=== PATIENT | female | born 1950 | race Caucasian/White ===

== ENCOUNTER 2018-06-17 14:51 | Outpatient (CLI) | payer MEDICARE, BC ==
--- NOTE | 2018-06-17 17:10 | XRAY Report ---
Reason: INJURY LT FOOT Procedure Date: 06/17/2018 Accession Number: [id number] / [id number] Procedure: XR - Foot 3 View LT CPT Code: FULL RESULT: EXAM: LEFT FOOT RADIOGRAPHY EXAM DATE: 06/17/2018 02:59 PM. CLINICAL HISTORY: INJURY LT FOOT with pain. COMPARISON: 12/26/15 left foot x-ray, 03/28/16 left foot MRI. TECHNIQUE: 3 views. FINDINGS: Bones: No fractures or bone lesions. Joints: Moderately advanced first metatarsophalangeal and first metatarsal sesamoid degenerative change. Degenerative change the second metatarsal tarsal articulation. Soft Tissues: Mild soft tissue swelling medial first metatarsal head and lateral fifth metatarsal head IMPRESSION: Degenerative change left foot radiography similar to 12/26/15. RADIA
== END 2018-06-17 14:52 | disposition home or self-care (01) ==
LOC: DI 14:51
PROVIDERS: ATTEND Podiatrist
DX: S99.922A Unspecified injury of left foot, initial encounter (principal); M19.072 Primary osteoarthritis, left ankle and foot

== ENCOUNTER 2018-11-04 03:17 | Emergency (ER) | payer MEDICARE, BC ==
--- NOTE | 2018-11-04 03:57 | ED Physician Documentation ---
PD HPI HEENT - Stated complaint Stated Complaint: BLEEDING EAR - Chief complaint Chief Complaint: Heent - History obtained from History obtained from: Patient - History of Present Illness Timing - onset: How many hours ago (approximately 1 hour DERRICK HAND) Timing - details: Abrupt onset Location: Right ear Improves: Nothing Worsens: No: Swalllowing, Noise, Position, Temperatures, Everything Associated symptoms: No: Fever, Congestion, Rhinorrhea, Trismus, Unable to swallow, Swollen nodes, Facial swelling, Headache, Cough Similar symptoms before: Has not had sx before Recently seen: Not recently seen - Additional information Additional information: woke from sleep with painless bleeding from right ear. denies trauma, denies h/o similar problem Review of Systems Constitutional: reports: Reviewed and negative Ears: reports: Drainage/discharge (blood). 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 - Present Medications Home Medications: Ambulatory Orders Medication Instructions Recorded Confirmed Atorvastatin [Lipitor] 2 mg ORAL DAILY 08/11/14 11/04/18 Bupropion HCl [Wellbutrin] 1 mg ORAL DAILY 08/11/14 11/04/18 Citalopram [CeleXA] 40 mg PO DAILY 08/11/14 11/04/18 Lamotrigine [Lamotrigine ER] 1 mg ORAL DAILY 08/11/14 11/04/18 - Allergies Allergies/Adverse Reactions: Allergies Allergy/AdvReac Type Severity Reaction Status Date / Time No Known Drug Allergies Allergy Verified 11/04/18 03:23 - Social History Does the pt smoke?: No Smoking Status: Never smoker Does the pt drink ETOH?: Yes Does the pt have substance abuse?: No - Immunizations Immunizations are current?: Yes PD ED PE NORMAL - Vitals Vital signs reviewed: Yes - General General: Alert and oriented X 3, No acute distress, Well developed/nourished - HEENT HEENT: Moist mucous membranes PD ED PE EXPANDED - HEENT HEENT: Other (there is blood in right external auditory canal but no active bleeding seen including after blood and debris removed with plastic curette. no swelling and normal right TM.) Results - Vitals Vitals: Oxygen O2 Source Room air PD MEDICAL DECISION MAKING - ED course Complexity details: considered differential, d/w patient Departure - Departure Disposition: 01 Home, Self Care Clinical Impression: Otitis externa Condition: Good Instructions: ED Otitis Externa Comments: Use the antibiotic drops as follows: 4 drops in right ear three times per day for 1 week. Follow-up with ENT as scheduled. Discharge Date/Time: 11/04/18 04:34
[2018-11-04] MEDS ORDERED: NEOMYCIN/POLYMYX/HC OTIC DROPS RIGHTEAR STA (04:23)
[2018-11-04 04:31] VITALS: BP 122/64
== END 2018-11-04 04:34 | disposition home or self-care (01) ==
LOC: ED 03:17
DX: H60.91 Unspecified otitis externa, right ear (principal)
CPT/HCPCS: 99282; 99283; A9270

== ENCOUNTER 2019-05-02 07:45 | Outpatient (CLI) | payer MEDICARE, BC ==
[2019-05-02] MEDS ORDERED: GADOBUTROL 10 MMOL/10 ML VIAL ONE (07:55)
[2019-05-02] MEDS ORDERED: GADOBUTROL 10 MMOL/10 ML VIAL IVP ONE (08:41)
--- NOTE | 2019-05-02 09:23 | MRI Report ---
Reason: VERTIGO, DIZZINESS, HEADACHE Procedure Date: 05/02/2019 Accession Number: [id number] / [id number] Procedure: MRI - IACS W/WO CPT Code: FULL RESULT: EXAM: MRI BRAIN AND IACS WITHOUT AND WITH CONTRAST EXAM DATE: 05/02/2019 08:52 AM. CLINICAL HISTORY: 6-year-old woman with vertigo, dizziness, and headache. COMPARISON: BRAIN 01/03/2007 2:59 PM. TECHNIQUE: Multiplanar, multisequence T1-weighted and fluid-sensitive MR sequences of the brain were performed. Sequences optimized for routine evaluation. Other: High resolution axial images were acquired through the internal auditory canals. IV Contrast: 7 cc Gadavist. FINDINGS: Parenchyma: No evidence of acute infarct on diffusion-weighted sequence. The parenchyma demonstrates several small scattered foci of nonspecific FLAIR hyperintensity in the deep cerebral white matter, progressed compared to 2006 MRI but still less than commonly seen in this age group. No evidence of prior hemorrhage on susceptibility weighted sequence. No abnormal enhancement. Pituitary: Unremarkable. Ventricles and Extra-axial Spaces: Ventricles are symmetric and normal in size for age. Extra-axial spaces are unremarkable. No abnormal enhancement. Internal Auditory Canals: Patent without mass lesion or abnormal enhancement bilaterally. Cochleas and vestibular apparatuses demonstrate normal fluid signal intensity without abnormal enhancement. No evidence of semicircular canal dehiscence. Orbits: Unremarkable. Sinuses: Paranasal sinuses and mastoid air cells are clear. Major Vascular Flow Voids: Intact. Dural Venous Sinuses and Major Central Veins: Patent on post-contrast images. Other: Cystic lesion is present in the left infratemporal soft tissues just anterior to the external auditory canal that measures 10 x 8 mm, not significantly changed compared to the 2006 exam. IMPRESSION: 1. Normal MRI of the internal auditory canals. No abnormal enhancement or mass lesion. 2. Mild white matter changes, progressed compared to the 01/03/2007 exam but less than commonly seen in this age group. 3. Small cystic lesion in the left anterior periauricular soft tissues, unchanged from the 2006 exam. Stability favors benignity. Differential diagnosis includes cystic skin lesion or possibly cyst arising from the temporomandibular joint. RADIA
== END 2019-05-02 07:46 | disposition home or self-care (01) ==
LOC: DI 07:45
PROVIDERS: ATTEND Otolaryngology Facial Plastic Surgery
DX: H81.11 Benign paroxysmal vertigo, right ear (principal); H93.293 Other abnormal auditory perceptions, bilateral; R42 Dizziness and giddiness; R51 Headache
CPT/HCPCS: 70543; A9585

== ENCOUNTER 2019-06-28 16:03 | Emergency (ER) | payer MEDICARE, BC ==
[2019-06-28 16:15] VITALS: BP 140/75
[2019-06-28 16:28] LABS: BILIRUBIN,URINE NEGATIVE (NEGATIVE); GLUCOSE, URINE (UA) NEGATIVE (NEGATIVE); KETONES,URINE (UA) NEGATIVE (NEGATIVE); LEUKOCYTE ESTERASE, URINE MODERATE (NEGATIVE); NITRITE,URINE NEGATIVE (NEGATIVE); OCCULT BLOOD,URINE LARGE (NEGATIVE); PH,URINE 5.5 PH (5.0-7.5); PROTEIN,URINE 100 mg/dL (NEGATIVE); UROBILINOGEN,URINE 0.2 (NORMAL) E.U./dL (NORMAL)
[2019-06-28 16:31] LABS: BACTERIA,URINE Many /HPF (None Seen); CLARITY,URINE CLOUDY (CLEAR); RBC,URINE TNTC /HPF (0-5); SQUAMOUS EPITHELIAL CELL,UR RARE Squamous (<= Few)
--- NOTE | 2019-06-28 16:49 | ED Physician Documentation ---
History of Present Illness - Stated complaint Stated Complaint: FEM - Chief complaint Chief Complaint: UTI - Additonal information Additional information: This is a 69-year-old female with a history of a hysterectomy as well as recurrent UTIs, who presents with urgency and dysuria. Patient states that she was evaluated by a urologist in the past to look for structural causes of her UTI, nothing was found. She has had some recurrent UTIs for years, most recently she began having some symptoms 2 weeks ago. She was put on a 5-day course of Macrobid which did not help, she saw a second physician who put her on a 10-day course of Macrobid, this also has not resolved her symptoms. She denies any abdominal pain, vomiting, or fever. Other than the dysuria and urgency she feels well. 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 - Present Medications Home Medications: Ambulatory Orders Medication Instructions Recorded Confirmed Atorvastatin [Lipitor] 2 mg ORAL DAILY 08/11/14 11/04/18 Bupropion HCl [Wellbutrin] 1 mg ORAL DAILY 08/11/14 11/04/18 Citalopram [CeleXA] 40 mg PO DAILY 08/11/14 11/04/18 Lamotrigine [Lamotrigine ER] 1 mg ORAL DAILY 08/11/14 11/04/18 Cefdinir 300 mg PO BID #14 capsule 06/28/19 Phenazopyridine HCl [Pyridium] 200 mg PO TID PRN #6 tablet 06/28/19 - Allergies Allergies/Adverse Reactions: Allergies Allergy/AdvReac Type Severity Reaction Status Date / Time No Known Drug Allergies Allergy Verified 11/04/18 03:23 - Social History Does the pt smoke?: No Smoking Status: Never smoker Does the pt drink ETOH?: Yes Does the pt have substance abuse?: No - Immunizations Immunizations are current?: Yes PD ED PE NORMAL - Vitals Vital signs reviewed: Yes - General General: Alert and oriented X 3, No acute distress - HEENT HEENT: Atraumatic - Cardiac Cardiac: Other (Well-perfused extremities) - Respiratory Respiratory: No respiratory distress - Abdomen Abdomen: Soft, Non tender, Non distended - Derm Derm: Warm and dry - Extremities Extremities: No deformity - Neuro Neuro: Alert and oriented X 3 - Psych Psych: Normal mood, Normal affect Results - Vitals Vitals: Oxygen O2 Source Room air - Labs Labs: Microbiology 06/28/19 15:57 Urine Culture - Preliminary Urine,Clean Catch Laboratory Tests 06/28/19 15:57 Urine Color YELLOW Urine Clarity CLOUDY Urine pH 5.5 Ur Specific [place] >=1.030 H Urine Protein 100 H Urine Glucose (UA) NEGATIVE Urine Ketones NEGATIVE Urine Occult Blood LARGE H Urine Nitrite NEGATIVE Urine Bilirubin NEGATIVE Urine Urobilinogen 0.2 (NORMAL) Ur Leukocyte Esterase MODERATE H Urine RBC TNTC H Urine WBC >25 H Ur Squamous Epith Cells RARE Squamous Urine Bacteria Many H Ur Microscopic Review INDICATED Urine Culture Comments INDICATED PD MEDICAL DECISION MAKING - ED course Complexity details: considered differential (UTI, pyelonephritis) ED course: Pt presents with classic UTI symptoms and urine is positive for UTI. She is non- toxic, has no flank tenderness or fever and has a benign abdominal exam. Given her UTIs have not responded to macrobid in the past and given her age, I elected to treat with cefdinir. She has PCP follow up and plans to follow up with a urologist as well to discuss her recurrent UTIs again. I reviewed return precautions and patient was discharged home. Departure - Departure Disposition: 01 Home, Self Care Clinical Impression: UTI (urinary tract infection) Qualifiers: Urinary tract infection type: acute cystitis Hematuria presence: with hematuria Qualified Code(s): N30.01 - Acute cystitis with hematuria Condition: Good Instructions: ED UTI Cystitis Female Prescriptions: Cefdinir 300 mg PO BID #14 capsule Phenazopyridine HCl [Pyridium] 200 mg PO TID PRN #6 tablet PRN Reason: dysuria Comments: You were seen today for symptoms of a UTI, your urine test did show an infection. Please take the Cefdinir antibiotic as prescribed, and follow-up with your primary care provider and urologist. If you are having abdominal pain, vomiting, or fever despite antibiotics please return to the emergency department for recheck. Discharge Date/Time: 06/28/19 16:55
== END 2019-06-28 16:55 | disposition home or self-care (01) ==
LOC: ED 16:03
DX: N30.01 Acute cystitis with hematuria (principal)
CPT/HCPCS: 81001; 81003; 87077; 87086; 87181; 99283

== ENCOUNTER 2019-07-13 11:12 | Emergency (ER) | payer MEDICARE, BC ==
[2019-07-13 11:29] VITALS: BP 122/73
[2019-07-13 11:53] LABS: GLUCOSE, URINE (UA) NEGATIVE (NEGATIVE); KETONES,URINE (UA) NEGATIVE (NEGATIVE); LEUKOCYTE ESTERASE, URINE MODERATE (NEGATIVE); NITRITE,URINE NEGATIVE (NEGATIVE); OCCULT BLOOD,URINE LARGE (NEGATIVE); PROTEIN,URINE >=300 mg/dL (NEGATIVE); UROBILINOGEN,URINE 0.2 (NORMAL) E.U./dL (NORMAL)
[2019-07-13 12:06] LABS: BILIRUBIN,URINE NEGATIVE (NEGATIVE); CLARITY,URINE SL. CLOUDY (CLEAR); ICTOTEST,URINE NEGATIVE
[2019-07-13 12:23] LABS: BACTERIA,URINE Few /HPF (None Seen); SQUAMOUS EPITHELIAL CELL,UR NONE SEEN (<= Few)
--- NOTE | 2019-07-13 12:47 | ED Physician Documentation ---
History of Present Illness - Stated complaint Stated Complaint: FEMALE - Chief complaint Chief Complaint: UTI - History obtained from History obtained from: Patient - History of Present Illness Timing: Today Pain level max: 2 Pain level now: 0 - Additonal information Additional information: 69-year-old female with recurrent UTIs. She states that she has dysuria, urgency and frequency again today. No blood. No fevers. No nausea or vomiting. Nothing makes it better. 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 - Present Medications Home Medications: Ambulatory Orders Medication Instructions Recorded Confirmed Atorvastatin [Lipitor] 2 mg ORAL DAILY 08/11/14 11/04/18 Bupropion HCl [Wellbutrin] 1 mg ORAL DAILY 08/11/14 11/04/18 Citalopram [CeleXA] 40 mg PO DAILY 08/11/14 11/04/18 Lamotrigine [Lamotrigine ER] 1 mg ORAL DAILY 08/11/14 11/04/18 Cefdinir 300 mg PO BID #14 capsule 06/28/19 Phenazopyridine HCl [Pyridium] 200 mg PO TID PRN #6 tablet 06/28/19 Cephalexin [Keflex] 500 mg PO Q6H #20 capsule 07/13/19 Phenazopyridine HCl [Pyridium] 200 mg PO TID PRN #6 tablet 07/13/19 - Allergies Allergies/Adverse Reactions: Allergies Allergy/AdvReac Type Severity Reaction Status Date / Time No Known Drug Allergies Allergy Verified 11/04/18 03:23 - Social History Does the pt smoke?: No Smoking Status: Never smoker Does the pt drink ETOH?: Yes Does the pt have substance abuse?: No - Immunizations Immunizations are current?: Yes PD ED PE NORMAL - Vitals Vital signs reviewed: Yes - General General: Alert and oriented X 3, No acute distress - HEENT HEENT: Moist mucous membranes - Neck Neck: Supple, no meningeal sign - Cardiac Cardiac: RRR - Respiratory Respiratory: No respiratory distress, Clear bilaterally - Abdomen Abdomen: Soft, Non tender, Non distended - Back Back: No CVA TTP - Derm Derm: Warm and dry - Neuro Neuro: Alert and oriented X 3 - Psych Psych: Normal mood, Normal affect Results - Vitals Vitals: Vital Signs - 24 hr 07/13/19 11:25 Temperature 36.5 C Heart Rate 79 Respiratory 14 Rate Blood Pressure 122/73 O2 Saturation 100 Oxygen O2 Source Room air - Labs Labs: Laboratory Tests 07/13/19 11:35 Urine Color YELLOW Urine Clarity SL. CLOUDY Urine pH 6.0 Ur Specific [place] 1.025 Urine Protein >=300 H Urine Glucose (UA) NEGATIVE Urine Ketones NEGATIVE Urine Occult Blood LARGE H Urine Nitrite NEGATIVE Urine Bilirubin NEGATIVE Urine Urobilinogen 0.2 (NORMAL) Ur Leukocyte Esterase MODERATE H Urine RBC 11-25 H Urine WBC >25 H Ur Squamous Epith Cells NONE SEEN Urine Bacteria Few Ur Microscopic Review INDICATED Urine Culture Comments INDICATED PD MEDICAL DECISION MAKING - ED course Complexity details: reviewed results, re-evaluated patient, considered differential, d/w patient ED course: Patient with a recurrent UTI. Past urine cultures have been E. coli that is pansensitive. We will place her on Keflex. We will have her follow-up with her doctor for further care. Patient counseled regarding signs and symptoms for which I believe and urgent re-evaluation would be necessary. Patient with good understanding of and agreement to plan and is comfortable going home at this time This document was made in part using voice recognition software. While efforts are made to proofread this document, sound alike and grammatical errors may occur. Departure - Departure Disposition: 01 Home, Self Care Clinical Impression: UTI (urinary tract infection) Qualifiers: Urinary tract infection type: acute cystitis Hematuria presence: without hematuria Qualified Code(s): N30.00 - Acute cystitis without hematuria Condition: Good Instructions: ED UTI Cystitis Female Follow-Up: your,doctor in 1 week [Other] Prescriptions: Cephalexin [Keflex] 500 mg PO Q6H #20 capsule Phenazopyridine HCl [Pyridium] 200 mg PO TID PRN #6 tablet PRN Reason: dysuria Comments: Take all antibiotics until gone. Return if you worsen.
== END 2019-07-13 13:14 | disposition home or self-care (01) ==
LOC: ED 11:12
DX: N30.00 Acute cystitis without hematuria (principal)
CPT/HCPCS: 81001; 81003; 87086; 99283; 99284

== ENCOUNTER 2020-09-04 09:15 | Outpatient (CLI) | payer MEDICARE, BC | END 2020-09-04 23:59 | disposition home or self-care (01) | LOC: LAB.R 09:15 | PROVIDERS: ATTEND Family Medicine | DX: N39.0 Urinary tract infection, site not specified (principal) | CPT/HCPCS: 87077; 87086; 87181 ==

== ENCOUNTER 2021-01-02 08:00 | Outpatient (CLI) | payer MEDICARE, BC | END 2021-01-02 23:59 | disposition home or self-care (01) | LOC: LAB.N 08:00 | PROVIDERS: ATTEND Physician Assistant Medical | DX: N39.0 Urinary tract infection, site not specified (principal) | CPT/HCPCS: 87086; 87181 ==

== ENCOUNTER 2021-01-03 08:00 | Outpatient (CLI) | payer MEDICARE, BC | END 2021-01-03 23:59 | disposition home or self-care (01) | LOC: LAB.N 08:00 | PROVIDERS: ATTEND Nurse Practitioner | DX: B34.9 Viral infection, unspecified (principal); Z20.822 Contact with and (suspected) exposure to COVID-19 | CPT/HCPCS: 87070; U0004 ==

== ENCOUNTER 2021-01-07 12:47 | Outpatient (CLI) | payer MEDICARE, BC ==
--- NOTE | 2021-01-07 13:45 | XRAY Report ---
PROCEDURE: Chest 2 View X-Ray INDICATIONS: COUGH TECHNIQUE: 2 view(s) of the chest. COMPARISON: None. FINDINGS: Surgical changes and devices: None. Lungs and pleura: No pleural effusions or pneumothorax. Lungs are clear. Diaphragmatic eventration s bilaterally. Mediastinum: Mediastinal contours are normal. Heart size is normal. Bones and chest wall: No suspicious bony abnormalities. Soft tissues appear unremarkable. IMPRESSION: No acute cardiopulmonary disease. Reviewed by: Amanda Castro MD on 01/07/2021 1:44 PM PDT Approved by: Amanda Castro MD on 01/07/2021 1:44 PM PDT Station ID: [id number]
== END 2021-01-07 23:59 | disposition home or self-care (01) ==
LOC: DI.N 12:47
PROVIDERS: ATTEND Family Medicine
DX: R05 Cough (principal); Z20.822 Contact with and (suspected) exposure to COVID-19
CPT/HCPCS: 71046; U0004

== ENCOUNTER 2021-05-14 08:00 | Outpatient (CLI) | payer MEDICARE, BC | END 2021-05-14 23:59 | disposition home or self-care (01) | LOC: LAB.N 08:00 | PROVIDERS: ATTEND Family Medicine | DX: K30 Functional dyspepsia (principal); Z20.822 Contact with and (suspected) exposure to COVID-19 ==

== ENCOUNTER 2021-12-23 12:58 | Emergency (ER) | payer MEDICARE, BC ==
--- NOTE | 2021-12-23 13:11 | ED Physician Documentation ---
PD HPI HEAD INJURY - Stated complaint Stated Complaint: HEAD INJ,LAC - Chief complaint Chief Complaint: Trauma Hd/Nk - History obtained from History obtained from: Patient - History of Present Illness Mechanism of head injury: Fell (She was shoveling in the garden and tripped on the shovel and fell forward striking her head on the edge of a raised bed box.) Where head injury occurred: Home Location of injury: Front Quality of pain: Aching Associated symptoms: Other (general headache initially frontal but more widespread now.). No: LOC, Nausea / vomiting Symptoms worsen with: Palpation, Other (sitting up) Contributing factors: No: Anticoagulated, Intoxicated Similar symptoms before: Has not had sx before Review of Systems Constitutional: denies: Fever Nose: denies: Rhinorrhea / runny nose, Congestion Throat: denies: Sore throat Cardiac: denies: Chest pain / pressure Respiratory: denies: Dyspnea, Cough GI: denies: Abdominal Pain, Nausea, Vomiting, Diarrhea Neurologic: reports: Headache, Head injury. 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 - Present Medications Home Medications: Ambulatory Orders Medication Instructions Recorded Confirmed Atorvastatin [Lipitor] 40 mg ORAL DAILY 08/11/14 12/23/21 Bupropion HCl [Wellbutrin] 300 mg ORAL DAILY 08/11/14 12/23/21 Citalopram [CeleXA] 40 mg PO DAILY 08/11/14 12/23/21 Lamotrigine [Lamotrigine ER] 200 mg ORAL DAILY 08/11/14 12/23/21 Cefdinir 300 mg PO BID #14 capsule 06/28/19 Phenazopyridine HCl [Pyridium] 200 mg PO TID PRN #6 tablet 06/28/19 Phenazopyridine HCl [Pyridium] 200 mg PO TID PRN #6 tablet 07/13/19 cephALEXin [Keflex] 500 mg PO Q6H #20 capsule 07/13/19 - Allergies Allergies/Adverse Reactions: Allergies Allergy/AdvReac Type Severity Reaction Status Date / Time No Known Drug Allergies Allergy Verified 12/23/21 13:07 - Social History Does the pt smoke?: No Smoking Status: Never smoker Does the pt drink ETOH?: Yes Does the pt have substance abuse?: No - Immunizations Immunizations are current?: Yes PD ED PE NORMAL - Vitals Vital signs reviewed: Yes - General General: Alert and oriented X 3, No acute distress, Well developed/nourished - HEENT HEENT: PERRL, EOMI, Other (left frontal scalp with full thickness lac with mild ongoing bleeding, no FBs. Locally tender. 3.6 cm laceration.) - Neck Neck: Supple, no meningeal sign, No bony TTP, No adenopathy - Respiratory Respiratory: Other (no chestwall tenderness. ) - Abdomen Abdomen: Soft, Non tender - Back Back: No spinal TTP - Derm Derm: Normal color, Warm and dry - Neuro Neuro: Alert and oriented X 3, air quality specialist 2-12 intact, No motor deficit, No sensory deficit, Normal speech Eye Opening: Spontaneous Motor: Obeys Commands Verbal: Oriented GCS Score: 15 - Psych Psych: Normal mood Results - Vitals Vitals: Vital Signs - 24 hr 12/23/21 12/23/21 13:05 15:36 Temperature 36.0 C L 36.8 C Heart Rate 73 68 Respiratory 16 16 Rate Blood Pressure 153/82 H 126/66 O2 Saturation 98 98 Oxygen O2 Source Room air - Rads (name of study) head CT Radiology: Prelim report reviewed (no intracranial bleeding nor fractures. ), See rad report Procedures - Laceration (location) left frontal scalp Length in cm: 3.6 Wound type: Linear, Into subcut fat, Clean Neurovascular status: Sensory intact Anesthesia: Marcaine 0.5% with epi Wound preparation: Irrigated copiously NS Deep layer closure: Vicryl, size #-0 - enter number (5), # sutures - enter number (7) Skin layer closure: Nylon, Running, Size #-0 - enter number (4), Sutures - enter # (11) Other: Patient tolerated well, No complications, Neurovascular intact, Tetanus booster given Departure - Departure Disposition: 01 Home, Self Care Clinical Impression: Accidental fall Qualifiers: Encounter type: initial encounter Qualified Code(s): W19.XXXA - Unspecified fall, initial encounter Laceration of scalp Qualifiers: Encounter type: initial encounter Qualified Code(s): S01.01XA - Laceration without foreign body of scalp, initial encounter Condition: Stable Record reviewed to determine appropriate education?: Yes Instructions: ED Laceration Scalp Stitch Or Stap Follow-Up: DIYA OVIEDO MD [Primary Care Provider] - Comments: Your CT scan does not show any signs of bleeding or fractures. The laceration in the scalp should heal up okay with routine care. Tylenol or ibuprofen if needed for pains. It is okay to wash and shower. Clean off the wound twice a day with soap and water, or peroxide and water. Apply some antibiotic ointment to it to keep it moist. Also to watch for signs of infection such as purulence, redness or increasing pain. Return to your primary care or the ER at the specified time for suture removal. Suture removal approximately 10 days. Discharge Date/Time: 12/23/21 15:36
--- OUTSIDE RECORDS SUMMARY | 2021-12-23 13:39 | EXTERNAL MEDICAL SUMMARY RPT | Continuity of Care Document ---
:1950 Author Organization [facility] Address [address] [place] [address] Phone Care Team Providers Name Role Phone Vero Meehan Unavailable Unavailable Allergies No information. Encounters No information. Medications date description facility 20211101 24 HR Bupropion Hydrochloride 300 MG Ex tended Release [facility] Tablet 20211101 atorvastatin 40 MG Oral Tablet [facility] 20211101 Trimethoprim 100 MG Oral Tablet [facility] 20211101 Cholecalciferol 2000 UNT Chewable Table t [facility] Problems Procedures date description facility 20211101 [facility] Results No information. Vital Signs date measurement value source 20211101 weight_standard 167.04 lb 20211101 weight_metric 75.77 kg 20211101 temperature_standard 97.6 F 20211101 temperature_metric 36.44 C 20211101 height_standard 66 in 20211101 height_metric 167.64 cm 20211101 heart_rate 74 /min 20211101 BP_systolic 108 mm[Hg] 20211101 BP_diastolic 36 mm[Hg] 20211101 BMI 26.9 kg/m2
--- NOTE | 2021-12-23 15:05 | CT Report ---
PROCEDURE: 60 brain without contrast INDICATIONS: fall, struck head TECHNIQUE: Noncontrast 4.5 mm thick angled axial sections acquired from the foramen magnum to the vertex. For r adiation dose reduction, the following was used: automated exposure control, adjustment of mA and/or kV according to patient size. COMPARISON: None. FINDINGS: Image quality: Excellent. CSF spaces: Basal cisterns are patent. No extra-axial fluid collections. Ventricles are normal in size and shape. Brain: No midline shift. No intracranial masses or hemorrhage. Siu-white matter interface is norm al. Moderate atrophy and multifocal white matter chronic ischemic change noted. Atherosclerotic vasc ular calcification noted in the cavernous segments of both internal carotid arteries as well as the i ntradural vertebral arteries. Skull and face: Calvarium and visualized facial bones are intact, without suspicious lesions. Left f rontal scalp hematoma noted. Incidental hyperostosis frontalis interna noted. Sinuses: Visualized sinuses and mastoids are clear. IMPRESSION: Left frontal scalp hematoma without underlying skull fracture or intracranial hemorrhage Atrophy and chronic ischemic change Reviewed by: Fabricio De La Fuente MD on 12/23/2021 2:04 PM AKDT Approved by: Fabricio De La Fuente MD on 12/23/2021 2:04 PM AKDT Station ID: [id number]
[2021-12-23] MEDS: ACETAMINOPHEN 325 MG TABLET PO STA (15:21)
[2021-12-23] MEDS: TETANUS/DIPHTHERIA/PERTUSSIS 0.5 ML SYRINGE IM ONE (15:27)
[2021-12-23 15:38] VITALS: BP 126/66
== END 2021-12-23 15:36 | disposition home or self-care (01) ==
LOC: ED 12:58
DX: S01.01XA Laceration without foreign body of scalp, initial encounter (principal); W01.198A Fall on same level from slipping, tripping and stumbling with subsequent striking against other object, initial encounter; Y93.H2 Activity, gardening and landscaping; Y92.007 Garden or yard of unspecified non-institutional (private) residence as the place of occurrence of the external cause; Z23 Encounter for immunization; Z71.85 Encounter for immunization safety counseling
CPT/HCPCS: 12002; 70450; 90471; 90715; 99282; 99284; A9270

== ENCOUNTER 2022-01-02 09:54 | Emergency (ER) | payer MEDICARE, BC ==
[2022-01-02 10:03] VITALS: BP 118/55
--- OUTSIDE RECORDS SUMMARY | 2022-01-02 10:04 | EXTERNAL MEDICAL SUMMARY RPT | Continuity of Care Document ---
:1950 Author Organization [facility] Address [address] [place] [address] Phone Care Team Providers Name Role Phone Meehan Unavailable Unavailable Allergies No information. Encounters No information. Medications date description facility 20211101 24 HR Bupropion Hydrochloride 300 MG Ex tended Release [facility] Tablet 20211101 atorvastatin 40 MG Oral Tablet [facility] 20211101 Trimethoprim 100 MG Oral Tablet [facility] 20211101 Cholecalciferol 2000 UNT Chewable Table t [facility] Problems Procedures date description facility 20211101 General [facility] Results No information. Vital Signs date measurement value source 20211101 weight_standard 167.04 lb 20211101 weight_metric 75.77 kg 20211101 temperature_standard 97.6 F 20211101 temperature_metric 36.44 C 20211101 height_standard 66 in 20211101 height_metric 167.64 cm 20211101 heart_rate 74 /min 20211101 BP_systolic 108 mm[Hg] 20211101 BP_diastolic 36 mm[Hg] 20211101 BMI 26.9 kg/m2
--- NOTE | 2022-01-02 10:09 | ED Physician Documentation ---
PD HPI WOUND RECHECK - Stated complaint Stated Complaint: STITCH REMOVAL - Chief complaint Chief Complaint: General - Histroy obtained from History obtained from: Patient - History of Present Illness Location: Scalp (left frontal) Timing - onset: How many days ago (10) Associated symptoms: No: Redness, Swelling, Drainage Similar symptoms before: Other (patient staes cleaning and ointment to wound. 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 : Chronic bladder infection HEENT: None Psych: Depression Musculoskeletal: None Derm: None - Past Surgical History Past Surgical History: Yes General: Other /PAINT LINE SUPERVISOR: section, Hysterectomy - Present Medications Home Medications: Ambulatory Orders Medication Instructions Recorded Confirmed Atorvastatin [Lipitor] 40 mg ORAL DAILY 08/11/14 01/02/22 Bupropion HCl [Wellbutrin] 300 mg ORAL DAILY 08/11/14 01/02/22 Citalopram [CeleXA] 40 mg PO DAILY 08/11/14 01/02/22 Lamotrigine [Lamotrigine ER] 200 mg ORAL DAILY 08/11/14 01/02/22 Celecoxib [Celebrex] 200 mg PO DAILY 01/02/22 01/02/22 Cholecalciferol [Vitamin D3] 25 mcg PO DAILY 01/02/22 01/02/22 - Allergies Allergies/Adverse Reactions: Allergies Allergy/AdvReac Type Severity Reaction Status Date / Time No Known Drug Allergies Allergy Verified 01/02/22 10:00 - Social History Does the pt smoke?: No Smoking Status: Never smoker Does the pt drink ETOH?: Yes Does the pt have substance abuse?: No - Immunizations Immunizations are current?: Yes PD ED PE NORMAL - Vitals Vital signs reviewed: Yes - General General: Alert and oriented X 3, No acute distress, Well developed/nourished - HEENT HEENT: Other (frontal scalp with healing wound and intact sutures. No signs of infection. Will have nurses remove sutures. ) Results - Vitals Vitals: Oxygen O2 Source Room air PD MEDICAL DECISION MAKING - ED course Complexity details: considered differential (healing wound here for suture removal. ), d/w patient Departure - Departure Disposition: 01 Home, Self Care Clinical Impression: Visit for suture removal Condition: Stable Record reviewed to determine appropriate education?: Yes Instructions: ED Wound Check Sutr Remove No Infec Follow-Up: DIYA OVIEDO MD [Primary Care Provider] - Comments: Continue with some gentle cleaning of the wound and ointment once or twice daily until fully healed. The wound looks good at this point without signs of infection and the sutures were out without any problems. Discharge Date/Time: 01/02/22 10:25
== END 2022-01-02 10:25 | disposition home or self-care (01) ==
LOC: ED 09:54
DX: S01.01XD Laceration without foreign body of scalp, subsequent encounter (principal); X58.XXXD Exposure to other specified factors, subsequent encounter
CPT/HCPCS: 99281

== ENCOUNTER 2022-01-15 13:17 | Emergency (ER) | payer MEDICARE, BC ==
--- NOTE | 2022-01-15 13:44 | ED Physician Documentation ---
History of Present Illness - Stated complaint Stated Complaint: DIZZY,TIRED,HEADACHE - Chief complaint Chief Complaint: Neuro - Additonal information Additional information: 71-year-old female comes to the emergency department for evaluation of feeling off balance, dizzy and persistent headache. On 23 December she unfortunately fell struck the left side of her head on a garden planter. She came into the ER received sutures for her wound and had unremarkable CT and neck imaging. She returned here on the 02 January for suture removal. She reports that about 10 days ago she began having a persistent left-sided headache. As she feels it when she presses on the left side of her head she has pain radiate to the right. There have been no vision changes or double vision but she feels that she is off balance and sometimes has a difficult time walking a straight line. She also states that she gets very dizzy especially when she bends forward. Review of Systems Constitutional: denies: Fever, Chills Eyes: denies: Loss of vision, Decreased vision Ears: denies: Loss of hearing, Ear pain Nose: reports: Reviewed and negative Cardiac: reports: Reviewed and negative Respiratory: reports: Reviewed and negative GI: reports: Reviewed and negative : reports: Reviewed and negative Skin: reports: Reviewed and negative Musculoskeletal: reports: Reviewed and negative Neurologic: reports: Headache, Head injury. 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 : Chronic bladder infection HEENT: None Psych: Depression Musculoskeletal: None Derm: None - Past Surgical History Past Surgical History: Yes General: Other /CURTAIN MENDER: section, Hysterectomy - Present Medications Home Medications: Ambulatory Orders Medication Instructions Recorded Confirmed Atorvastatin [Lipitor] 40 mg ORAL DAILY 08/11/14 01/15/22 Bupropion HCl [Wellbutrin] 300 mg ORAL DAILY 08/11/14 01/15/22 Citalopram [CeleXA] 40 mg PO DAILY 08/11/14 01/15/22 Lamotrigine [Lamotrigine ER] 200 mg ORAL DAILY 08/11/14 01/15/22 Celecoxib [Celebrex] 200 mg PO DAILY 01/02/22 01/15/22 Cholecalciferol [Vitamin D3] 25 mcg PO DAILY 01/02/22 01/15/22 - Allergies Allergies/Adverse Reactions: Allergies Allergy/AdvReac Type Severity Reaction Status Date / Time No Known Drug Allergies Allergy Verified 01/15/22 13:26 - Social History Does the pt smoke?: No Smoking Status: Never smoker Does the pt drink ETOH?: Yes Does the pt have substance abuse?: No - Immunizations Immunizations are current?: Yes PD ED PE NORMAL - General General: Alert and oriented X 3, No acute distress - HEENT HEENT: Atraumatic, Moist mucous membranes. No: Ears normal (cerumen in both ear canal) - Neck Neck: Supple, no meningeal sign, No adenopathy - Cardiac Cardiac: RRR, No murmur, No gallop - Respiratory Respiratory: No respiratory distress, Clear bilaterally - Abdomen Abdomen: Normal bowel sounds, Soft, Non tender - Back Back: No CVA TTP, No spinal TTP - Derm Derm: Normal color, Warm and dry, No rash - Extremities Extremities: No deformity, No tenderness to palpate, Normal ROM s pain - Neuro Neuro: Alert and oriented X 3, warp knitter helper 2-12 intact, No motor deficit, No sensory deficit, Normal speech, Other (Normal gait. Normal finger-nose. Significant loss of balance with heel toe) Eye Opening: Spontaneous Motor: Obeys Commands Verbal: Oriented GCS Score: 15 - Psych Psych: Normal mood Results - Vitals Vitals: Vital Signs - 24 hr 01/15/22 13:27 Temperature 37.8 C Heart Rate 73 Respiratory 18 Rate Blood Pressure 136/82 H O2 Saturation 100 Oxygen O2 Source Room air - Labs Labs: Laboratory Tests 01/15/22 01/15/22 01/15/22 13:43 13:43 13:43 WBC 4.1 L RBC 4.57 Hgb 14.2 Hct 42.9 MCV 93.9 MCH 31.1 H MCHC 33.1 RDW 13.6 Plt Count 253 MPV 10.0 Neut # (Auto) 2.2 Lymph # (Auto) 1.3 L Yates # (Auto) 0.4 Eos # (Auto) 0.1 Baso # (Auto) 0.0 Absolute Nucleated RBC 0.00 Nucleated RBC % 0.0 Sodium 143 Potassium 4.0 Chloride 106 Carbon Dioxide 25 Anion Gap 12.0 BUN 14 Creatinine 1.0 Estimated GFR (MDRD) 55 L Glucose 123 H Calcium 9.7 Total Bilirubin 0.4 AST 20 ALT 27 Alkaline Phosphatase 66 Total Protein 7.1 Albumin 4.4 Globulin 2.7 Albumin/Globulin Ratio 1.6 Lipase 35 TSH 0.86 Urine Color Urine Clarity Urine pH Ur Specific [place] Urine Protein Urine Glucose (UA) Urine Ketones Urine Occult Blood Urine Nitrite Urine Bilirubin Urine Urobilinogen Ur Leukocyte Esterase Urine RBC Urine WBC Ur Squamous Epith Cells Urine Bacteria Ur Microscopic Review Urine Culture Comments 01/15/22 14:00 WBC RBC Hgb Hct MCV MCH MCHC RDW Plt Count MPV Neut # (Auto) Lymph # (Auto) Yates # (Auto) Eos # (Auto) Baso # (Auto) Absolute Nucleated RBC Nucleated RBC % Sodium Potassium Chloride Carbon Dioxide Anion Gap BUN Creatinine Estimated GFR (MDRD) Glucose Calcium Total Bilirubin AST ALT Alkaline Phosphatase Total Protein Albumin Globulin Albumin/Globulin Ratio Lipase TSH Urine Color LT. YELLOW Urine Clarity CLEAR Urine pH 6.0 Ur Specific [place] <=1.005 Urine Protein NEGATIVE Urine Glucose (UA) NEGATIVE Urine Ketones NEGATIVE Urine Occult Blood NEGATIVE Urine Nitrite NEGATIVE Urine Bilirubin NEGATIVE Urine Urobilinogen 0.2 (NORMAL) Ur Leukocyte Esterase SMALL H Urine RBC 0-5 Urine WBC 0-3 Ur Squamous Epith Cells FEW Squamous Urine Bacteria Few Ur Microscopic Review INDICATED Urine Culture Comments INDICATED - Rads (name of study) angio head Radiology: Final report received (No imaging explanation is found for the patient's presenting symptoms. No magda acute intracranial abnormality is seen. No significant intracranial arterial abnormalities are seen.) angio neck Radiology: Final report received (No hemodynamically significant stenosis can be seen within the arteries of the neck) PD MEDICAL DECISION MAKING - ED course Complexity details: reviewed results, re-evaluated patient, considered differential, d/w patient ED course: 71-year-old female return to the emergency department for evaluation of a persistent headache and dizziness after a ground-level fall over 3 weeks ago. She struck her head on a planter and did receive several sutures. Her symptoms began about 10 days after the fall. There have been no fevers, no nausea or vomiting. She states that most of the dizziness is when she bends over. She presented with no focal neurodeficits. I suspect that she likely has a postconcussive syndrome but given her age and recent fall we did proceed with CT angio of the head and neck. No bleeding, subdural hematoma or intraparenchymal hemorrhage was noted. In addition no stenosis within the flow of the arteries of the head or neck. I did discuss with the patient that as an outpatient she would likely benefit from an MRI. Otherwise she will continue to follow-up with her primary care provider. Emergent return precautions discussed Departure - Departure Disposition: 01 Home, Self Care Clinical Impression: Dizziness Headache Qualifiers: Headache type: unspecified Headache chronicity pattern: unspecified pattern Intractability: not intractable Qualified Code(s): R51.9 - Headache, unspecified Condition: Stable Record reviewed to determine appropriate education?: Yes Comments: Pippa samayoa are seen today in the emergency department because you have had a persistent headache as well as some dizziness. This follows a fall nearly a month ago in which she struck her head on a planter. 9 today your screening labs including your CBC and electrolytes are all essentially normal though your nonfasting blood glucose was 123. We did do CT angiograms of your head and neck. There were no findings of bruising or bleeding within the brain. There was no reduced blood flow seen throughout the vessels of your head and neck. This is important. I suspect that you may have a postconcussive syndrome as a cause of your dizziness but given your age I think it is important to follow-up closely with your primary doctor as you would benefit from an outpatient MRI which can be much more diagnostic than CT imaging. If at any point you develop slurred speech, have facial droop, sudden arm or leg weakness then please return immediately to the ER for a second evaluation.
--- OUTSIDE RECORDS SUMMARY | 2022-01-15 13:47 | EXTERNAL MEDICAL SUMMARY RPT | Continuity of Care Document ---
:1950 Author Organization [facility] Address [address] [place] [address] Phone Care Team Providers Name Role Phone Meehan Unavailable Unavailable Allergies No information. Encounters No information. Medications date description facility 20211101 24 HR Bupropion Hydrochloride 300 MG Ex tended Release [facility] Tablet 20211101 atorvastatin 40 MG Oral Tablet [facility] 20211101 Trimethoprim 100 MG Oral Tablet [facility] 20211101 Cholecalciferol 2000 UNT Chewable Table t [facility] Problems Procedures date description facility 20211101 General [facility] Results No information. Vital Signs date measurement value source 20211101 weight_standard 167.04 lb 20211101 weight_metric 75.77 kg 20211101 temperature_standard 97.6 F 20211101 temperature_metric 36.44 C 20211101 height_standard 66 in 20211101 height_metric 167.64 cm 20211101 heart_rate 74 /min 20211101 BP_systolic 108 mm[Hg] 20211101 BP_diastolic 36 mm[Hg] 20211101 BMI 26.9 kg/m2
[2022-01-15 13:50] LABS: EOSINOPHILS # (AUTO) 0.1 10^3/uL (0.0-0.7); EOSINOPHILS % (AUTO) 3.5 %; HCT - HEMATOCRIT 42.9 % (37.0-47.0); HGB - HEMOGLOBIN 14.2 g/dL (12.0-16.0); LYMPHOCYTES # (AUTO) 1.3 10^3/uL (1.5-3.5); LYMPHOCYTES % (AUTO) 31.9 %; MEAN CORPUSCULAR HEMOGLOBIN 31.1 pg (27.0-31.0); MEAN CORPUSCULAR HGB CONC 33.1 g/dL (32.0-36.0); MEAN CORPUSCULAR VOLUME 93.9 fL (81.0-99.0); MONOCYTES # (AUTO) 0.4 10^3/uL (0.0-1.0); MONOCYTES % (AUTO) 10.1 %; NEUTROPHILS # (AUTO) 2.2 10^3/uL (1.5-6.6); NEUTROPHILS % (AUTO) 53.3 %; PLT - PLATELET COUNT 253 10^3/uL (130-450); RED BLOOD COUNT 4.57 10^6/uL (4.20-5.40); RED CELL DISTRIBUTION WIDTH 13.6 % (12.0-15.0); WHITE BLOOD COUNT 4.1 x10^3/uL (4.8-10.8)
[2022-01-15 14:02] LABS: ALBUMIN 4.4 g/dL (3.2-5.5); ALBUMIN/GLOBULIN RATIO 1.6 (1.0-2.2); BILIRUBIN,TOTAL 0.4 mg/dL (0.2-1.0); CALCIUM 9.7 mg/dL (8.5-10.3); TOTAL PROTEIN 7.1 g/dL (6.7-8.2)
[2022-01-15] MEDS ORDERED: IOPAMIDOL-300 100 ML VIAL ONE (14:17)
[2022-01-15 14:24] LABS: BILIRUBIN,URINE NEGATIVE (NEGATIVE); CLARITY,URINE CLEAR (CLEAR); GLUCOSE, URINE (UA) NEGATIVE (NEGATIVE); KETONES,URINE (UA) NEGATIVE (NEGATIVE); LEUKOCYTE ESTERASE, URINE SMALL (NEGATIVE); NITRITE,URINE NEGATIVE (NEGATIVE); OCCULT BLOOD,URINE NEGATIVE (NEGATIVE); PROTEIN,URINE NEGATIVE (NEGATIVE); UROBILINOGEN,URINE 0.2 (NORMAL) E.U./dL (NORMAL)
[2022-01-15 14:35] LABS: BACTERIA,URINE Few /HPF (None Seen); RBC,URINE 0-5 /HPF (0-5); SQUAMOUS EPITHELIAL CELL,UR FEW Squamous (<= Few); WBC,URINE 0-3 /HPF (0-5)
[2022-01-15] MEDS ORDERED: IOPAMIDOL-300 100 ML VIAL IVP ONE (14:37)
--- NOTE | 2022-01-15 14:51 | CT Report ---
PROCEDURE: ANGIO HEAD W/WO INDICATIONS: L sided facial droop CONTRAST: IV CONTRAST: Isovue 300 ml: 80 PO CONTRAST: *NO PO CONTRAST TECHNIQUE: Precontrast 4.5 mm thick angled axial sections acquired from the foramen magnum to the vertex. Afte r the administration of intravenous contrast, 1 mm thick sections acquired through the [place] of [place] is. Postcontrast 4.5 mm thick sections then re-acquired from the foramen magnum to the vertex. 3-di mensional wrktmmj-mxazbncqm-hpipffufey (MIP) and/or volume rendering reformats were acquired of the c entral intracranial vasculature. For radiation dose reduction, the following was used: automated ex posure control, adjustment of mA and/or kV according to patient size. COMPARISON: Head CT, 12/23/2021 Correlation is made with the accompanying neck CT angiogram, . FINDINGS: Image quality: There is streak artifact seen through the skull base. Anterior circulation: Intracranial internal carotid arteries are normal in size and flow. The flow within the paired anterior cerebral arteries is normal and symmetric. The flow within the middle cer ebral arteries is normal and symmetric. The anterior communicating artery is not well seen. No aneu rysms are seen. Posterior circulation: Visualized portions of the vertebral arteries demonstrate normal caliber, and join to form a normal appearing basilar artery. Flow within the posterior cerebral arteries is norm al and symmetric. No aneurysms are seen. CSF spaces: Ventricles are normal in size and shape. Basal cisterns are patent. No extra-axial flu id collections. Brain: No midline shift. No intracranial bleeds or masses. Siu-white matter interface appears int act. Skull and face: In this patient with this given history, scrutiny is given to the course of the left -sided facial nerve, including within the left parotid gland. No masses or abnormal enhancement can b e seen along the course of the left facial nerve. Calvarium and facial bones appear intact, without s uspicious lesions. Sinuses: Visualized sinuses and mastoids are clear. IMPRESSION: No imaging explanation is found for the patient's presenting symptoms. No magda, acute intracranial abnormality is seen. No significant intracranial arterial abnormalities are seen. If there is strong clinical concern for a stroke, please consider a dedicated brain MRI for further e valuation (assuming that there is no contraindication to MRI). In this patient with left-sided facia l droop, please consider brain MRI IAC protocol (without and with contrast). Reviewed by: Betito Valadez MD on 01/15/2022 1:49 PM FÁTIMA Approved by: Betito Valadez MD on 01/15/2022 1:49 PM FÁTIMA Station ID: [id number]
--- NOTE | 2022-01-15 14:53 | CT Report ---
PROCEDURE: ANGIO NECK W INDICATIONS: L sided facial droop, L neck pain CONTRAST: IV CONTRAST: Isovue 300 ml: 80 PO CONTRAST: *NO PO CONTRAST TECHNIQUE: After the administration of intravenous contrast, 1.5 mm axial sections acquired from the aortic arch to the [place] of [place]. Coronal 3-D maximum intensity projection (MIP) and/or volume rendering ref ormats were then performed. For radiation dose reduction, the following was used: automated exposur e control, adjustment of mA and/or kV according to patient size. COMPARISON: Correlation is made with the accompanying head CT angiogram, 01/15/2022. FINDINGS: Image quality: Excellent. Carotid system: The great vessels demonstrate a conventional anatomy as they arise from the aortic a rch. The origins of the common carotid arteries appear patent. The common carotid arteries demonstr ate normal calibers and courses. The bifurcation regions appear normal bilaterally. The internal ca rotid arteries demonstrate normal caliber. There is medialization of the right internal carotid felton ry, which is seen anterior to the vertebral bodies and posterior to the pharynx, as on series 2 image 129 and on series 4 image 115. Posterior circulation: The origins of the vertebral arteries appear patent. The more superior porti ons of the vertebral arteries demonstrate normal course and caliber. They join to form a normal appe aring basilar artery. Soft tissues: Visualized neck soft tissues demonstrate no suspicious abnormalities. The thyroid is normal in size and there are no incidental findings. Bones: No suspicious bony lesions. Visualized cervical spine appears normally aligned. At least m oderate cervical spine degenerative change can be seen. IMPRESSION: No hemodynamically significant stenosis can be seen within the arteries of the neck. Incidental note is made of: Medialized right internal carotid artery At least moderate cervical spine degenerative change The estimate of stenosis included in the report of the imaging study was calculated using the NASCET method Reviewed by: Betito Valadez MD on 01/15/2022 1:52 PM FÁTIMA Approved by: Betito Valadez MD on 01/15/2022 1:52 PM FÁTIMA Station ID: [id number]
[2022-01-15 15:15] VITALS: BP 114/62
--- NOTE | 2022-01-17 12:22 | ED Physician Documentation ---
ED Addendum - Addendum Addendum: 01/17/22 12:22 Chart reviewed for positive urine culture. Per documentation patient had no signs or symptoms of UTI and chart review shows that she always has a positive urine culture, there have been a total of 5 urine cultures in the last 7 years and each 1 was positive, this is consistent with colonization and asymptomatic bacteriuria and I do not think a change in treatment is necessary.
== END 2022-01-15 15:16 | disposition home or self-care (01) ==
LOC: ED 13:17
DX: R51.9 Headache, unspecified (principal); R42 Dizziness and giddiness
CPT/HCPCS: 36415; 70496; 70498; 80053; 81001; 83690; 84443; 85025; 87086; 87181; 99284; Q9967; 81003

== ENCOUNTER 2022-06-19 08:00 | Outpatient (CLI) | payer MEDICARE, BC ==
--- NOTE | 2022-06-19 17:44 | XRAY Report ---
PROCEDURE: Toe(s) RT INDICATIONS: R 5TH TOE PX TECHNIQUE: 3 views of the fifth toe(s) acquired. COMPARISON: None FINDINGS: Bones: No fractures or dislocations. No suspicious bony lesions. No evidence of fracture. Hallux v algus noted involving the first metatarsal phalangeal joint. Soft tissues: No suspicious soft tissue densities. IMPRESSION: No evidence of fracture or foreign body Hallux valgus Reviewed by: Fabricio De La Fuente MD on 06/19/2022 4:42 PM FÁTIMA Approved by: Fabricio De La Fuente MD on 06/19/2022 4:42 PM AKYAQUELIN Station ID: [id number]
== END 2022-06-19 23:59 | disposition home or self-care (01) ==
LOC: DI.N 08:00
PROVIDERS: ATTEND Nurse Practitioner
DX: M20.11 Hallux valgus (acquired), right foot (principal)

== ENCOUNTER 2024-04-26 08:00 | Outpatient (CLI) | payer MEDICARE, BC ==
[2024-04-26 16:42] LABS: BACTERIAL VAGINOSIS DNA NEGATIVE (NEGATIVE); CANDIDA GLABRATA DNA NEGATIVE (NEGATIVE); CANDIDA GROUP DNA NEGATIVE (NEGATIVE); CANDIDA KRUSEI DNA NEGATIVE (NEGATIVE); TRICHOMONAS VAGINALIS DNA NEGATIVE (NEGATIVE)
== END 2024-04-26 23:59 | disposition home or self-care (01) ==
LOC: LAB 08:00
PROVIDERS: ATTEND Physician Assistant
DX: R30.0 Dysuria (principal); B37.31 Acute candidiasis of vulva and vagina
CPT/HCPCS: 81514; 87077; 87086; 87181